=== PATIENT | female | born 1960 | race Caucasian/White ===

== ENCOUNTER → 2017-08-14 | Outpatient (CLI) | payer OTHER ==
[~2017-08-14] MED LIST: CEP500 PO; KET10 PO; MULT-820 PO; OMEP40CA48 PO; PER PO; [UNRECOGNIZED DRUG - OTHER]
[2017-08-14 11:34] LABS: LDL CHOLESTEROL 133 mg/dl
== END ==
LOC: MAMO 01:15
PROVIDERS: ATTEND Nurse Practitioner Family
DX: E78.5 Hyperlipidemia, unspecified (principal); E55.9 Vitamin D deficiency, unspecified; K21.9 Gastro-esophageal reflux disease without esophagitis
CPT/HCPCS: 36415; 82040; 82247; 82306; 82310; 82374; 82435; 82465; 82565; 82947; 83718; 84075; 84132; 84155; 84295; 84450; 84460; 84478; 84520

== ENCOUNTER → 2017-08-14 | Outpatient (CLI) | payer OTHER ==
--- NOTE | 2017-08-15 08:13 | RADIOLOGY IMAGING REPORT ---
FACILITY: [facility] - [place] PATIENT NAME: BOBY GARDUNO : [id number] MR: [id number] V: [id number] EXAM DATE: [id number] ORDERING PHYSICIAN: STEWART FALCON TECHNOLOGIST: Mira Olea PROCEDURE:US RIGHT BREAST COMPARISON:None. INDICATIONS:PALPABLE LUMP ADJACENT TO THE RIGHT NIPPLE. FINDINGS: Multiple images were obtained in the Right periareolar region. There is a minimally prominent duct in the Right retroareolar breast measuring 2mm in diameter. No solid lesion is identified. Clinical follow-up recommended for patient's palpable findings. DIAGNOSTIC CATEGORY 2--BENIGN FINDING. RECOMMENDATIONS: ROUTINE MAMMOGRAM AND CLINICAL EVALUATION. CLINICAL EVALUATION. IMPRESSION: BIRADS 2: Benign finding One minimally prominent duct identified in the Right retroareolar breast. Clinical follow-up recommend for patient's palpable findings. Dictated by: Diana Polanco M.D. on 08/14/2017 at 16:04 Transcribed by: BISHNU on 08/14/2017 at 16:15 Approved by: Diana Polanco M.D. on 08/15/2017 at 8:12 [facility]
--- NOTE | 2017-08-24 11:15 | RADIOLOGY IMAGING REPORT ---
FACILITY: [facility] PATIENT NAME: BOBY GARDUNO : [id number] MR: [id number] V: [id number] EXAM DATE: ORDERING PHYSICIAN: STEWART FALCON TECHNOLOGIST: Veronica Christopher PROCEDURE:BILATERAL DIAGNOSTIC DIGITAL MAMMOGRAM WITH CAD ASSISTED INTERPRETATION & 3D TOMOSYNTHESIS COMPARISON:Prior mammograms 03/15/16, 06/25/12. INDICATIONS:Right periareolar mass at 9 o'clock FINDINGS: Mildly heterogeneous fibroglandular tissue is seen throughout the breasts. The parenchymal pattern has remained stable allowing for difference in mammographic technique & patient positioning. There is no evidence of malignant appearing mass, malignant appearing calcifications or other secondary sign of malignancy in either breast. Today's Right breast Ultrasound revealed 1 minimally prominent duct in the Right arteriolar breast. Clinical follow-up recommended for patient's palpable findings. DIAGNOSTIC CATEGORY 2--BENIGN FINDING. RECOMMENDATIONS: ROUTINE MAMMOGRAM AND CLINICAL EVALUATION. CLINICAL EVALUATION. IMPRESSION: BIRADS 2: Benign finding No significant abnormality is seen. Dictated by: Diana Polanco M.D. on 08/14/2017 at 16:06 Transcribed by: BISHNU on 08/15/2017 at 8:06 Approved by: Diana Polanco M.D. on 08/15/2017 at 8:12 [facility]
== END ==
LOC: MAMO 11:04
PROVIDERS: ATTEND Obstetrics & Gynecology
DX: N60.41 Mammary duct ectasia of right breast (principal)
CPT/HCPCS: 77062; 77066

== ENCOUNTER → 2018-02-04 | Outpatient (CLI) | payer OTHER ==
--- NOTE | 2018-02-04 15:47 | RADIOLOGY IMAGING REPORT ---
FACILITY: [facility] - [place] PATIENT NAME: BOBY GARDUNO : [id number] MR: [id number] V: [id number] EXAM DATE: [id number] ORDERING PHYSICIAN: STEWART FALCON TECHNOLOGIST: Pedro Moreno RDMS, ALEX PROCEDURE:US RIGHT BREAST COMPLETE COMPARISON:Ultrasound 08/14/2017. INDICATIONS:Persistent mass, pt thinks it is growing FINDINGS: Ultrasound images of the Right breast, of the patient's palpable lump are obtained. Normal breast tissue is seen. There is no evidence of suspicious mass. I went into the patient's exam room, and also imaged in real time where the patient felt the lump, and no abnormality was seen. DIAGNOSTIC CATEGORY 1--NEGATIVE. RECOMMENDATIONS: ROUTINE MAMMOGRAM AND CLINICAL EVALUATION. This was discussed with the patient. IMPRESSION: BIRADS 1: Negative. No evidence for malignancy. Dictated by: Vance Lim M.D. on 02/04/2018 at 11:00 Transcribed by: BISHNU on 02/04/2018 at 14:18 Approved by: Vance Lim M.D. on 02/04/2018 at 15:47 [facility]
== END ==
LOC: US 04:05
PROVIDERS: ATTEND Obstetrics & Gynecology
DX: N63.10 Unspecified lump in the right breast, unspecified quadrant (principal)

== ENCOUNTER → 2018-03-08 | Outpatient (CLI) | payer OTHER ==
[2018-03-08 08:27] LABS: LDL CHOLESTEROL 169 mg/dl
== END ==
LOC: LAB 07:30
PROVIDERS: ATTEND Nurse Practitioner Family
DX: Z00.00 Encounter for general adult medical examination without abnormal findings (principal); K21.9 Gastro-esophageal reflux disease without esophagitis; E78.5 Hyperlipidemia, unspecified; E55.9 Vitamin D deficiency, unspecified
CPT/HCPCS: 36415; 82040; 82247; 82306; 82310; 82374; 82435; 82465; 82565; 82947; 83718; 84075; 84132; 84155; 84295; 84450; 84460; 84478; 84520

== ENCOUNTER → 2018-08-19 | Outpatient (CLI) | payer OTHER ==
[2018-08-19 08:26] LABS: PLATELET COUNT, AUTOMATED 276 K/uL (150-450)
== END ==
LOC: LAB 08:11
PROVIDERS: ATTEND Nurse Practitioner Family
DX: I21.02 ST elevation (STEMI) myocardial infarction involving left anterior descending coronary artery (principal); E04.9 Nontoxic goiter, unspecified; M54.2 Cervicalgia
CPT/HCPCS: 36415; 84439; 84443; 84481; 85025; 86376

== ENCOUNTER → 2018-08-21 | Outpatient (CLI) | payer OTHER ==
--- NOTE | 2018-08-21 13:58 | RADIOLOGY IMAGING REPORT ---
FACILITY: [facility] [place] PATIENT NAME: Yanelis Granados : 1960 MR: [id number] V: [id number] EXAM DATE: ORDERING PHYSICIAN: MICHELLE LALA TECHNOLOGIST: Location: [facility] - [place] Patient: Yanelis Granados : 1960 Visit/Account:[id number] Date of Sevice: 08/21/2018 THYROID HISTORY: Goiter and neck pain COMPARISON: None. FINDINGS: SIZE: Right lobe: 5 x 1.5 x 1.7 cm Left lobe: Surgically absent cm Isthmus: 2 mm PARENCHYMA: Homogeneous. NODULES: Right lobe: * None discrete. * Isthmus: * None discrete. VASCULARITY: Within normal limits. ADDITIONAL FINDINGS: None. IMPRESSION: Postsurgical changes from a left hemithyroidectomy. The right lobe appears homogeneous REFERENCE: 2015 [place] [employer] Management Guidelines for Adult Patients with Thyroid Nodules and D ifferentiated Thyroid Cancer: The [place] [employer] Guidelines Task Force on Thyroid Nodul es and Differentiated Thyroid Cancer. SONOGRAPHIC PATTERNS: * Benign: Purely cystic nodules (no solid component); estimated risk of malignancy <1 percent; no bi opsy recommended. * Very Low Suspicion: Spongiform or partially cystic nodules without any of the sonographic features described in low, intermediate, or high suspicion patterns; estimated risk of malignancy <3 percent; consider FNA at > 2 cm (Observation without FNA is also a reasonable option). * Low Suspicion: Isoechoic or hyperechoic solid nodule, or partially cystic nodule with eccentric so lid areas, without microcalcification, irregular margin or ETE (extra-thyroidal extension), or taller than wide shape; estimated risk of malignancy 5-10 percent; recommend FNA at >1.5 cm. * Intermediate Suspicion: Hypoechoic solid nodule with smooth margins without microcalcifications, E TE (extra-thyroidal extension), or taller than wide shape; estimated risk of malignancy 10-20 percent ; recommend FNA at > 1 cm. * High Suspicion: Solid hypoechoic nodule or solid hypoechoic component of a partially cystic nodule with one or more of the following features: irregular margins (infiltrative, microlobulated), microc alcifications, taller than wide shape, rim calcifications with small extrusive soft tissue component, evidence of ETE (extra-thyroidal extension); estimated risk of malignancy >70-90 percent; recommend FNA at > 1 cm. NOTES: * Although a sonographically suspicious subcentimeter thyroid nodule without evidence of extrathyroi susy extension or sonographically suspicious lymph nodes may be observed with close sonographic follow -up rather than pursuing immediate FNA, patient age and preference may modify decision-making. A > 50% interval increase in nodule volume and/or development of new suspicious sonographic features are felt to be a valid reasons for potential re-aspiration of a nodule previously shown to have benig n FNA cytology. Report Dictated By: Diana Polanco MD at 08/21/2018 1:52 PM Report E-Signed By: Diana Polanco MD at 08/21/2018 1:53 PM ALMA ROSAN:HAYDER
--- NOTE | 2018-08-21 14:01 | RADIOLOGY IMAGING REPORT ---
FACILITY: [facility] [place] PATIENT NAME: Yanelis Granados : 1960 MR: [id number] V: [id number] EXAM DATE: ORDERING PHYSICIAN: MICHELLE LALA TECHNOLOGIST: Location: [facility] [place] Patient: Yanelis Granados : 1960 Visit/Account:[id number] Date of Sevice: 08/21/2018 ADDENDUM #1 ADDENDUM: The last sentence in the findings section should read on the left side of the neck in zone two there is a 1.1 x 0.8 x 0.5 cm lymph node. Report Dictated By: Diana Polanco MD at 08/22/2018 11:03 AM Report E-Signed By: Diana Polanco MD at 08/22/2018 11:03 AM ORIGINAL REPORT Exam type: SOFT TISSUE HEAD NECK History: Goiter, neck pain, previous left hemithyroidectomy Comparison: Thyroid ultrasound performed today. Findings: In zone five on the right there is a 2 x 0.7 x 0.7 cm lymph node Also in zone five on the left there is a 1 x 0.3 x 0.4 cm lymph node that appears fatty replaced Also in zone five there is a 0.3 x 10 mm lymph node In zone three on the right there is a 1.9 x 0.4 x 0.8 cm lymph node On the left midlung zone two there is a 10.1 x 0.8 x 0.5 cm lymph node IMPRESSION: 1. There is scattered cervical lymph nodes seen bilaterally although all appear within normal limits by size criteria Report Dictated By: Diana Polanco MD at 08/21/2018 1:53 PM Report E-Signed By: Diana Polanco MD at 08/21/2018 1:56 PM WSN:[id number]
== END ==
LOC: US 00:53
PROVIDERS: ATTEND Nurse Practitioner Family
DX: Z90.89 Acquired absence of other organs (principal); M54.2 Cervicalgia; R59.9 Enlarged lymph nodes, unspecified
CPT/HCPCS: 76536